=== PATIENT | male | born 1975 | race Two or more races ===

== ENCOUNTER 2022-10-07 10:15 | Emergency (ER) | payer OTHER ==
[~2022-10-07] VITALS: Ht 165.1 cm; Wt 70.3 kg
[2022-10-07] MEDS ORDERED: ZITHROMAX TRI-500 MG PO (13:43)
== END 2022-10-07 13:59 | disposition home or self-care (01) ==
LOC: ER 10:15
PROVIDERS: General Practice
DX: J06.9 Acute upper respiratory infection, unspecified (principal); Z20.822 Contact with and (suspected) exposure to COVID-19